=== PATIENT | male | born 2000 | race Hispanic/Latino ===

== ENCOUNTER 2022-02-19 14:42 | Emergency (ER) | payer OTHER, BC ==
[~2022-02-19 14:42] MED LIST: Iopamidol-370 76% 500 ML 1 ML ONE
[2022-02-19] MEDS ORDERED: Morphine 4 MG/ML VIAL ONE (15:24)
== END 2022-02-19 17:47 | disposition home or self-care (01) ==
LOC: ERS 14:42
DX: S30.810A Abrasion of lower back and pelvis, initial encounter (principal); H92.02 Otalgia, left ear; M54.2 Cervicalgia; V29.408A Other motorcycle driver injured in collision with unspecified motor vehicles in traffic accident, initial encounter
CPT/HCPCS: 70498; 72170; 96374; J2270; Q9967